=== PATIENT | female | born 1960 ===

== ENCOUNTER 2022-07-23 18:01 | Emergency (ER) | payer OTHER ==
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
[2022-07-24 06:05] VITALS: BP 142/66
== END 2022-07-24 06:48 | disposition home or self-care (01) ==
LOC: ED 18:01
DX: S60.222A Contusion of left hand, initial encounter (principal); V89.2XXA Person injured in unspecified motor-vehicle accident, traffic, initial encounter; Y93.89 Activity, other specified; Y92.89 Other specified places as the place of occurrence of the external cause; Y99.8 Other external cause status
CPT/HCPCS: 99283